=== PATIENT | female | born 1935 | race Caucasian/White ===

== ENCOUNTER → 2016-06-29 | Outpatient (CLI) | payer MEDICARE, MEDICAID ==
[~2016-06-29] MED LIST: AMIT10TA6 PO; CEPH-583 PO; CHOL100092 PO; CITA20TA9 PO; GABA-336 PO; GUAI600T PO; HYDR-4078 PO; LISI10TA7 PO; LOPE2CAP PO; MAGN400O4 PO; METH1ADH6 TOP; MIRT15TA6 PO; MULT1TAB PO; PANT40TA32 PO; ROPI1TAB12 PO; SUCR1ORA12 PO; TROL85CR8 TOP; VITA1TAB15 PO; [UNRECOGNIZED DRUG - MIXTURE] TOP
[2016-06-29 08:27] LABS: ANION GAP 11 MEQ/L (5-15); BUN/CREATININE RATIO 21 RATIO (6-26); C-REACTIVE PROTEIN 25.2 MG/L (0-9); CALCIUM 8.4 MG/DL (8.4-10.2); CHLORIDE 105 MEQ/L (98-107); CO2 - CARBON DIOXIDE 26 MEQ/L (22-30); CREATININE 0.8 MG/DL (0.7-1.2); GLOMERULAR FILTRATION RATE 69; GLUCOSE 98 MG/DL (65-110); POTASSIUM 5.2 MEQ/L (3.6-5); SODIUM 142 MEQ/L (134-144)
== END ==
LOC: LABNH.A213 00:05
PROVIDERS: ATTEND Family Medicine
DX: Z79.3 Long term (current) use of hormonal contraceptives (principal); M71.0 Abscess of bursa
CPT/HCPCS: 36415; 80048; 86140; P9604

== ENCOUNTER 2017-08-11 07:31 | Inpatient (IN) ==
[2017-08-11] MEDS ORDERED: NS 1,000 ML IV ONE (07:35)
[2017-08-11] MEDS ORDERED: PIPERACILLIN/TAZOBACTAM 3.375 GM in NS 100 ML IV ONE (07:36)
--- NOTE | 2017-08-11 07:38 | Emergency Department Report ---
Weakness HPI - General Stated complaint: malaise Time Seen by Provider: 08/11/17 07:34 Source: patient, EMS, RN notes reviewed, old records reviewed Mode of arrival: EMS Limitations: no limitations - History of Present Illness HPI Narrative: 81yo woman presented to the ER by EMS for 'malaise'. Pt has been treated by her PCM for a UTI for several weeks now. Two days ago, her atbx was changed to bactrim. Last night, pt developed fevers, chills, malaise, hypoxia and weakness. Pt was evaluated and referred to the ER, but pt refused transport. This AM, pt had an episode of weakness/dizziness; she decided she wanted to be evaluated. Pt states that she has an allergy to 'septra'. Says that the last time she had this "I almost !" but cannot give further details of her allergy/reaction. Other than her stated symptoms, along with UTI sx (urgency, dysuria, frequency) she has no other sx. MD Complaint: generalized weakness Onset (ago): hour(s) Duration: constant Location: generalized Migration: none Severity: moderate Exacerbating factors: none Context: new medication, recent illness Associated symptoms: confusion, diaphoresis, dysuria, headaches, loss of appetite, nausea/vomiting, shortness of breath - Related Data Home Medications Medication Instructions Recorded Confirmed Trolamine Salicylate 10% Cream 1 applicatio TOP TID PRN #0 04/18/14 08/11/17 [Aspercreme] Ascorbic Acid [Vitamin C] 1,000 mg PO PM 08/11/17 08/11/17 Aspirin *EC* [Ecotrin] 325 mg PO DAILY 08/11/17 08/11/17 Cholecalciferol [Vit. D-3] 1,000 unit PO PM 08/11/17 08/11/17 Citalopram [Celexa] 40 mg PO DAILY 08/11/17 08/11/17 Cyanocobalamin (Vitamin B-12) 1,000 mcg PO DAILY 08/11/17 08/11/17 [Vitamin B-12] Diclofenac Top Gel [Voltaren] 1 applicatio TP BID 08/11/17 08/11/17 Diclofenac Top Gel [Voltaren] 1 applicatio TP BID PRN 08/11/17 08/11/17 Ferrous Sulfate 325 mg PO DAILY 08/11/17 08/11/17 Folic Acid 0.8 mg PO PM 08/11/17 08/11/17 Gabapentin [Neurontin] 100 mg PO QAM 08/11/17 08/11/17 Gabapentin [Neurontin] 200 mg PO HS 08/11/17 08/11/17 Guaifenesin/Dm Oral Liq 10 ml PO Q6H PRN 08/11/17 08/11/17 [Robitussin Dm] Lactobacillus Acidophilus 1 tab PO PM 08/11/17 08/11/17 [Acidophilus] Lactose-Reduced Food [Ensure 237 ml PO TID PRN 08/11/17 08/11/17 Liquid] Levothyroxine Sodium 50 mcg PO DAILY 08/11/17 08/11/17 Lisinopril [Prinivil] 5 mg PO DAILY 08/11/17 08/11/17 Mag Hydrox/Aluminum Hyd/Simeth 30 ml PO Q4H PRN 08/11/17 08/11/17 [Alum-Mag Hydroxide-Simeth Liq] Mag Hydrox/Aluminum Hyd/Simeth 30 ml PO Q4H PRN 08/11/17 08/11/17 [Maalox Advanced Suspension] Meloxicam [Meloxicam] 7.5 mg PO BID 08/11/17 08/11/17 Mirtazapine [Remeron] 30 mg PO HS 08/11/17 08/11/17 Morphine Sulfate *SR* [Ms Contin] 15 mg PO Q12H 08/11/17 08/11/17 Multivitamin [One Daily 1 tab PO DAILY 08/11/17 08/11/17 Multivitamin] Oxycodone/Apap 10/325 [Percocet 1 - 2 tab PO Q4H PRN 08/11/17 08/11/17 10/325] Pantoprazole Sodium [Protonix] 40 mg PO DAILY 08/11/17 08/11/17 Peg 3350 238 G Bottle [Miralax] 17 gm PO DAILY PRN 08/11/17 08/11/17 Petrolatum,White/Lanolin [Vitamin 1 applicatio TP HS 08/11/17 08/11/17 A & D Ointment] Ropinirole [Requip] 1 mg PO HS 08/11/17 08/11/17 Sulfamethox/Tmp [Bactrim Ds] 1 tab PO BID 08/11/17 08/11/17 Vitamin B Complex [Balanced B-50] 1 tab PO DAILY 08/11/17 08/11/17 cephALEXin [Cephalexin] 500 mg PO Q6H 08/11/17 08/11/17 guaiFENesin [Mucinex] 600 mg PO Q12H PRN 08/11/17 08/11/17 Allergies Allergy/AdvReac Type Severity Reaction Status Date / Time sulfamethoxazole Allergy Severe Difficulty Verified 08/11/17 07:45 Breathing trimethoprim Allergy Severe Difficulty Verified 08/11/17 07:45 Breathing Review of Systems All systems: reviewed and negative except as stated Constitutional: Reports: as per HPI, fever, weakness. Denies: chills, weight change, night sweats Cardiovascular: Reports: as per HPI. Denies: chest pain, palpitations, dyspnea on exertion, orthopnea, edema, syncope, paroxysmal nocturnal dyspnea Respiratory: Reports: as per HPI, dyspnea. Denies: cough, wheezes, hemoptysis, stridor Genitourinary: Reports: as per HPI, urgency, dysuria, frequency. Denies: hematuria Integumentary: Reports: as per HPI. Denies: erythema, lesions, rash, swelling, wounds Neurological: Reports: as per HPI, weakness, confusion. Denies: headache, numbness, paresthesias, abnormal gait, vertigo Hematological/Lymphatic: Reports: as per HPI. Denies: easy bleeding, easy bruising, lymphadenopathy Allergic/Immunologic: Reports: as per HPI. Denies: facial swelling, urticaria, itchy eyes [facility] Medical History Updates: Frequent UTIs. Chronic cough. Depression. Osteoarthritis. Diarrhea. Constipation. GERD. Insomnia. Esophagitis. HTN. HL Physical Exam - Limitations Limitations: no limitations - General General appearance: alert, in no apparent distress, obese (Morbid) - Head Head exam: atraumatic, normocephalic, normal inspection - Eye Eye exam: Present: normal appearance, PERRL, EOMI. Absent: scleral icterus - ENT ENT exam: Present: normal exam, normal oropharynx, mucous membranes moist, normal external ear exam - Neck Neck exam: Present: normal inspection, full ROM, trachea midline. Absent: tenderness, lymphadenopathy - Chest Chest inspection: Present: normal inspection, symmetric chest wall rise. Absent : tenderness, rash - Respiratory Respiratory exam: Present: wheezes. Absent: normal lung sounds bilaterally, respiratory distress, stridor, prolonged expiratory phase, crackles - Cardiovascular Cardiovascular exam: Present: regular rate, normal rhythm, normal heart sounds. Absent: rubs, gallop, clicks - Abdominal Exam Abdominal exam: Present: soft, normal bowel sounds. Absent: distention, tenderness, guarding, rebound, rigidity - Extremities Exam Extremities exam: Present: normal inspection, full ROM, normal capillary refill. Absent: tenderness, joint swelling - Skin Skin exam: Present: warm, dry, intact. Absent: rash - Neurological Exam Neurological exam: Present: alert, oriented X3, CN II-XII intact, reflexes normal. Absent: normal gait - Psychiatric Psychiatric exam: Present: agitated, flat affect Course - Consultations Consultation #1: Dr. Krishnan: Time: 10:12 Consultation #2: Hospitalist: Will admit for overnight obs for ARF, hypoxia, and weakness in setting of UTI. Time: 10:38 Weakness - MDM Narrative Medical decision making narrative: Pt has a UCx from 13 NEL[facility] that is resistant to everything except bactrim and pip/ tazo. It is likely that this is why pt was given bactrim (in addition to pts vague description of her 'reaction'). After review of pts labs/rads, etc, will place for overnight obs for ARF, hypoxia, and weakness in setting of [id number] UTI. - Differential Diagnosis Differential diagnosis: Likely: acute myocardial infarction, anemia, hypoglycemia, hypothyroidism, sepsis, dehydration - Medical Records Attestation: I reviewed the patient's medical records. - Lab Data Attestation: I reviewed the patient's lab results. Result diagrams: 08/11/17 08:01 08/11/17 08:01 - Radiology Data Attestation: I reviewed the patient's radiology results. - EKG Data EKG #1 EKG attestation: Yes: I reviewed and interpreted this EKG. EKG shows normal: sinus rhythm, axis, intervals, ST-T waves [place]/QRS: IVCD Disposition Clinical Impression: Hypoxia, Weakness ARF (acute renal failure) Qualifiers: Acute renal failure type: unspecified Qualified Code(s): N17.9 - Acute kidney failure, unspecified UTI (urinary tract infection) Qualifiers: Urinary tract infection type: acute cystitis Hematuria presence: without hematuria Qualified Code(s): N30.00 - Acute cystitis without hematuria Disposition: 02 To OBS [facility] [place] Print Language: Ch[place] Condition: Improved Prescriptions: No Action Trolamine Salicylate 10% Cream [Aspercreme] 1 applicatio TOP TID PRN #0 PRN Reason: muscle pain Aspirin *EC* [Ecotrin] 325 mg PO DAILY Folic Acid 0.8 mg PO PM Oxycodone/Apap 10/325 [Percocet 10/325] 1 - 2 tab PO Q4H PRN PRN Reason: Pain Peg 3350 238 G Bottle [Miralax] 17 gm PO DAILY PRN PRN Reason: Constipation Lactose-Reduced Food [Ensure Liquid] 237 ml PO TID PRN PRN Reason: Prn Orders guaiFENesin [Mucinex] 600 mg PO Q12H PRN PRN Reason: Sinus Symptoms Diclofenac Top Gel [Voltaren] 1 applicatio TP BID PRN PRN Reason: Pain Mag Hydrox/Aluminum Hyd/Simeth [Maalox Advanced Suspension] 30 ml PO Q4H PRN PRN Reason: Prn Orders Guaifenesin/Dm Oral Liq [Robitussin Dm] 10 ml PO Q6H PRN PRN Reason: Cough Sulfamethox/Tmp [Bactrim Ds] 1 tab PO BID Levothyroxine Sodium 50 mcg PO DAILY Vitamin B Complex [Balanced B-50] 1 tab PO DAILY Meloxicam [Meloxicam] 7.5 mg PO BID Citalopram [Celexa] 40 mg PO DAILY Cyanocobalamin (Vitamin B-12) [Vitamin B-12] 1,000 mcg PO DAILY Ascorbic Acid [Vitamin C] 1,000 mg PO PM Gabapentin [Neurontin] 100 mg PO QAM cephALEXin [Cephalexin] 500 mg PO Q6H Petrolatum,White/Lanolin [Vitamin A & D Ointment] 1 applicatio TP HS Pantoprazole Sodium [Protonix] 40 mg PO DAILY Ropinirole [Requip] 1 mg PO HS Multivitamin [One Daily Multivitamin] 1 tab PO DAILY Morphine Sulfate *SR* [Ms Contin] 15 mg PO Q12H Lactobacillus Acidophilus [Acidophilus] 1 tab PO PM Lisinopril [Prinivil] 5 mg PO DAILY Mirtazapine [Remeron] 30 mg PO HS Gabapentin [Neurontin] 200 mg PO HS Ferrous Sulfate 325 mg PO DAILY Cholecalciferol [Vit. D-3] 1,000 unit PO PM Mag Hydrox/Aluminum Hyd/Simeth [Alum-Mag Hydroxide-Simeth Liq] 30 ml PO Q4H PRN PRN Reason: Indigestion Diclofenac Top Gel [Voltaren] 1 applicatio TP BID Referrals: Raad Krishnan MD [Primary Care Provider] - Time of Disposition: 10:45 - Seen By: physician
--- OUTSIDE RECORDS SUMMARY | 2017-08-11 07:38 | External Medical Summary | Clinical Summary ---
:1935 Author Organization [facility] Address [address] [place] [address] Care Team Providers Name Role Phone Roverto Nuñez PA-C Unavailable Jose Moss MD Primary Care Provider Bernardino Molina MD Unavailable Source Comments Some departments are not documenting in the electronic medical record. If you do not see the information that you expected, contact Release of Information in the Health Information Management department at [phone] for further assistance in locating additional records.[facility] Allergies No Known Allergies Current Medications Prescription Sig. Disp. Refills Start Date End Date Status carisoprodol(+) (SOMA) Take 350 mg by Active 350 mg PO tablet mouth at bedtime daily. MULTI-VITAMIN PO Take by mouth. Active glucosamine(+) 500 mg PO Take 1,500 mg by Active Tab mouth once. chromium picolinate(+) Take 200 mcg by Active 200 mcg PO Cap mouth four times daily. Alpha Lipoic Acid 600 mg Take 600 mg by Active PO Cap mouth twice daily. melatonin(+) 3 mg PO Tab Take 6 mg by mouth Active at bedtime daily. CALCIUM/MAG/VITAMIN Take 500 mg by Active D2/ZN/MIN (QUETA-MAG ZINC mouth twice daily. II PO) oxycodone SR (OXYCONTIN) Take 1 Tab by 30 Tab 0 06/03/2010 Active 10 mg PO tablet mouth every 12 hours. oxycodone/acetaminophen Take 1-2 Tabs by 120 Tab 0 06/03/2010 Active (PERCOCET) 5/325 mg PO mouth every 4 tablet hours as needed for Pain. docusate (COLACE) 100 mg Take 1 Cap by 80 Cap 2 06/03/2010 Active PO capsule mouth twice daily. Social History Tobacco Use Types Packs/Day Years Used Date Never Assessed Sex Assigned at Date Recorded Not on file Last Filed Vital Signs Vital Sign Reading Time Taken Blood Pressure 133/62 06/03/2010 8:21 AM CDT Pulse 62 06/03/2010 8:21 AM CDT Temperature 36.9 C (98.4 F) 06/03/2010 8:21 AM CDT Respiratory Rate - - Oxygen Saturation 96% 06/03/2010 8:21 AM CDT Inhaled Oxygen Concentration - - Weight 90.8 kg (200 lb 2.8 oz) 05/25/2010 2:37 PM CDT Height 162.6 cm (5' 4") 05/25/2010 2:37 PM CDT Body Mass Index 34.36 05/25/2010 2:37 PM CDT Plan of Treatment Health Maintenance Due Date Last Done Comments PHYSICAL (COMPREHENSIVE) EXAM 1940 PERTUSSIS VACCINE 1944 TETANUS VACCINE 1950 SHINGLES VACCINE 1993 OSTEOPOROSIS SCREENING 1998 PNEUMONIA (PCV13/PPSV23) VACCINES (1 of 2 - PCV13) 1998 INFLUENZA VACCINE 11/20/2017
--- NOTE | 2017-08-11 08:18 | XRay Report ---
Indication: Malaise PROCEDURE: XR chest 1V: Encounter: Initial Comparison: April 17, 2015 FINDINGS: Chronic scarring in the left lower lobe. The lungs are otherwise clear. There is no abnormal airspace opacity, pleural effusion or pneumothorax identified. The heart size, pulmonary vasculature and mediastinum are within normal limits. No significant skeletal abnormality is seen. Spinal stimulator leads noted in the lower thoracic region. IMPRESSION: No acute cardiopulmonary abnormality. .
[2017-08-11] MEDS: SALINE FLUSH 10ml SYRINGE IVF PRN (09:56)
[2017-08-11 11:44] VITALS: BMI 44.6
--- NOTE | 2017-08-11 13:41 | History & Physical Report ---
History of Present Illness Date: 08/11/17 Chief complaint: Malaise HPI: Patient is an [address] Krishnan for primary care. She was brought into the ED this am due to increasing confusion and weakness thought to be r/t starting Bactrim 2 days ago for UTI. Patient had been started on a different antibiotic initially for her UTI, but her sxs were not improving and the urine culture only showed sensitivity to sulfa and pip/tazo. Pt reports in the past she had had an adverse reaction to Bactrim as well. She had some confusion and weakness last night and EMS evaluated her then but she declined transport to the ER. This am she couldn't hold on to the lift to transfer and her knees buckled and she couldn't talk, thus, she agreed to come to hospital. In ER, she was given a liter of NS and started on Pip/Tazo. Her labs revealed WBC of 7.3, hgb 11.9, potassium 5.4, Cr 2.1 and BUN 34. Lactate was normal. Urine cath specimen was essentially neg. CXR showed chronic scarring to the LLL , otherwise, no acute cardiopulmonary abnormality. EKG NSR with moderate intraventricular conduct delay. Review of Systems All systems PM: 10-point ROS was reviewed, no additional remarkable complaints except ("I hurt all over." (Chronic for patient - reports pain is from previous surgeries.) I still feel foggy. Is having some dysuria but reports her urgency and frequency has resolved. Last BM yesterday.) Past Medical History Medical History Updates: Frequent UTIs. Chronic cough. Depression. Osteoarthritis. Constipation. Insomnia. Esophagitis/GERD. HTN. HLD. Chronic musculoskeletal pain Surgical History: RTKA with revision following a fall, LTKA and femur repair following a different fall, lumbar back surgery, cholecystectomy, tonsillectomy , hysterectomy Family History: F - smoker, cardiomegaly M - uterine cancer Family History: As Above - Social History Smoking status: Never smoker Substance use type: does not use Alcohol intake frequency: does not drink Housing: senior care ([place]) Current occupational status: retired Social history: PCP - Dr. Krishnan Ortho - Dr Mejia ([place]) Medications Home Medications Medication Instructions Recorded Confirmed Type Trolamine Salicylate 10% Cream 1 applicatio TOP TID PRN #0 04/18/14 08/11/17 History [Aspercreme] Ascorbic Acid [Vitamin C] 1,000 mg PO PM 08/11/17 08/11/17 History Aspirin *EC* [Ecotrin] 325 mg PO DAILY 08/11/17 08/11/17 History Cholecalciferol [Vit. D-3] 1,000 unit PO PM 08/11/17 08/11/17 History Citalopram [Celexa] 40 mg PO DAILY 08/11/17 08/11/17 History Cyanocobalamin (Vitamin B-12) 1,000 mcg PO DAILY 08/11/17 08/11/17 History [Vitamin B-12] Diclofenac Top Gel [Voltaren] 1 applicatio TP BID 08/11/17 08/11/17 History Diclofenac Top Gel [Voltaren] 1 applicatio TP BID PRN 08/11/17 08/11/17 History Ferrous Sulfate 325 mg PO DAILY 08/11/17 08/11/17 History Folic Acid 0.8 mg PO PM 08/11/17 08/11/17 History Gabapentin [Neurontin] 100 mg PO QAM 08/11/17 08/11/17 History Gabapentin [Neurontin] 200 mg PO HS 08/11/17 08/11/17 History Guaifenesin/Dm Oral Liq 10 ml PO Q6H PRN 08/11/17 08/11/17 History [Robitussin Dm] Lactobacillus Acidophilus 1 tab PO PM 08/11/17 08/11/17 History [Acidophilus] Lactose-Reduced Food [Ensure 237 ml PO TID PRN 08/11/17 08/11/17 History Liquid] Levothyroxine Sodium 50 mcg PO DAILY 08/11/17 08/11/17 History Lisinopril [Prinivil] 5 mg PO DAILY 08/11/17 08/11/17 History Mag Hydrox/Aluminum Hyd/Simeth 30 ml PO Q4H PRN 08/11/17 08/11/17 History [Alum-Mag Hydroxide-Simeth Liq] Mag Hydrox/Aluminum Hyd/Simeth 30 ml PO Q4H PRN 08/11/17 08/11/17 History [Maalox Advanced Suspension] Meloxicam [Meloxicam] 7.5 mg PO BID 08/11/17 08/11/17 History Mirtazapine [Remeron] 30 mg PO HS 08/11/17 08/11/17 History Morphine Sulfate *SR* [Ms Contin] 15 mg PO Q12H 08/11/17 08/11/17 History Multivitamin [One Daily 1 tab PO DAILY 08/11/17 08/11/17 History Multivitamin] Oxycodone/Apap 10/325 [Percocet 1 - 2 tab PO Q4H PRN 08/11/17 08/11/17 History 10/325] Pantoprazole Sodium [Protonix] 40 mg PO DAILY 08/11/17 08/11/17 History Peg 3350 238 G Bottle [Miralax] 17 gm PO DAILY PRN 08/11/17 08/11/17 History Petrolatum,White/Lanolin [Vitamin 1 applicatio TP 08/11/17 08/11/17 History A & D Ointment] Ropinirole [Requip] 1 mg PO HS 08/11/17 08/11/17 History Sulfamethox/Tmp [Bactrim Ds] 1 tab PO BID 08/11/17 08/11/17 History Vitamin B Complex [Balanced B-50] 1 tab PO DAILY 08/11/17 08/11/17 History cephALEXin [Cephalexin] 500 mg PO Q6H 08/11/17 08/11/17 History guaiFENesin [Mucinex] 600 mg PO Q12H PRN 08/11/17 08/11/17 History Allergies Allergy/AdvReac Type Severity Reaction Status Date / Time sulfamethoxazole Allergy Severe Difficulty Verified 08/11/17 07:45 Breathing trimethoprim Allergy Severe Difficulty Verified 08/11/17 07:45 Breathing Exam Vital Signs: Temperature 98.4 F 08/11/17 11:33 Pulse Rate 63 08/11/17 11:33 Respiratory Rate 20 08/11/17 11:33 Blood Pressure 104/50 08/11/17 11:33 Pulse Oximetry 94 08/11/17 11:33 Height/Weight/BMI: Height 1.63 m Weight 117.9 kg Body Mass Index 44.6 - Constitutional Present: no acute distress, well nourished, well developed - Routine HEENT Exam Head: Present: normocephalic, atraumatic Eye: Present: EOMI, PERRL ENT: Present: mucous membranes moist, oropharynx clear - Routine Neck Exam Present: supple. Absent: lymphadenopathy, thyromegaly - Routine Respiratory Exam Present: CTA bilaterally. Absent: wheezes - Routine Cardiovascular Exam Present: RRR, no murmur - Routine Abdominal Exam Present: soft, normoactive bowel sounds. Absent: tenderness, distended - Routine Extremities Exam Present: edema (tr), normal capillary refill - Routine Skin Exam Present: dry, warm - Routine Neurological Exam Present: alert, oriented X3, CN II-XII intact struggles to finish her statements at times, is frustrated that she can't remember or come up with words. Still feels "a bit foggy." Totally appropriate with her answers and is alert and oriented. Able to recount events that led up to admission. - Routine Psychiatric Exam Present: normal affect, cooperative Results - Labs CBC & Chem 7: 08/11/17 08:01 08/11/17 08:01 Labs: Laboratory Tests 08/11/17 08:01 Troponin I < 0.012 Lipase 20 L Plasma Lactate 1.0 - Imaging and Cardiology Chest x-ray Additional comments: Date of Exam: 08/11/17 Indication: Malaise PROCEDURE: XR chest 1V: FINDINGS: Chronic scarring in the left lower lobe. The lungs are otherwise clear. There is no abnormal airspace opacity, pleural effusion or pneumothorax identified. The heart size, pulmonary vasculature and mediastinum are within normal limits. No significant skeletal abnormality is seen. Spinal stimulator leads noted in the lower thoracic region. IMPRESSION: No acute cardiopulmonary abnormality. Assessment and Plan Assessment and Plan: Assessment Altered mental status - likely r/t drug reaction vs UTI UTI - resistant to all drugs tested except sulfa and pip/tazo Adverse reaction to Bactrim Hypoxia - POA KRISTEN Anemia - POA Hyperkalemia - POA Frequent UTI's Chronic cough Depression Osteoarthritis GERD/esophagitis Insomnia HTN HLD Chronic pain Plan Admit, OBS DC Bactrim. 1st dose of pip/tazo given in ER. Continue q 6 hrs IV. NS 1 L bolused in ER. Continue at 125cc/hr for KRISTEN. Patient requiring 2L O2 NC to keep sats >90%. No O2 requirements at home. Incentive spirometer. UA, labs, CXR and EKG from ER reviewed. Urine culture, blood cultures pending. Continue home meds except Diclofenac gel, Mobic and Lisinopril due to KRISTEN. Repeat CBC and BMP in am to follow blood count and renal function/electrolytes. Heparin for DVT ppx. Care to return to Dr. Krishnan on DC Pt requests to be a full code. DVT Prophylaxis: SQ Heparin GI Prophylaxis: Protonix Resuscitation Status: Full Code - Physician Narrative Physician: other (Johnny Lopez MD) Narrative: I personally evaluated and assessed pt. Agree with the above assessment and plan. Pt was diagnosed with a UTI approx 10 days ago, and started on a medication which the organism ultimately was resistant to. About 2 days ago, due to ESBL E.Coli, which was sensitive to she was started on Bactrim DS BID, and received 5 doses total. She has a hx of Bactrim intolerance, and yesterday was told that the antibiotic was bactrim, and she seemed to subsequently feel worse with worse urinary symptoms. No rash, airway swelling. A/O x 3. NAD. LUngs clear. RRR. Obese. ESBL E.Coli UTI: Stop bactrim. Cover with zosyn, given that sensitive. Repeat UA negative. Completing 3-4 day course of appropriate abx should be adequate if generalized fatigue resolves. NS @125ml/hr given her KRISTEN. Since pt has been on bactrim, Cr appears artificially elevated in comparison to GFR due to Cr secretion. Given her decreased mobility, will consult PT/OT. Hospital Course Summary Disclaimer: The visit summary below is not to be considered part of the above Progress Note. Hospital Course: 08/11/17 Admit, OBS DC Bactrim. 1st dose of pip/tazo given in ER. Continue q 6 hrs IV. NS 1 L bolused in ER. Continue at 125cc/hr for KRISTEN. Patient requiring 2L O2 NC to keep sats >90%. No O2 requirements at home. Incentive spirometer. UA, labs, CXR and EKG from ER reviewed. Urine culture, blood cultures pending. Continue home meds except Diclofenac gel, Mobic and Lisinopril due to KRISTEN. Repeat CBC and BMP in am to follow blood count and renal function/electrolytes. Heparin for DVT ppx. Care to return to Dr. Krishnan on DC Pt requests to be a full code.
[2017-08-11] MEDS ORDERED: GUAIFENESIN/DM 5ml ORAL LIQUID PO PRN (14:21)
[2017-08-11] MEDS: PIPERACILLIN/TAZOBACTAM 2.25 GM in NS 100 ML IV SCH ×2 (17:22→21:31)
[2017-08-11] MEDS: NS 1,000 ML IV SCH (17:30)
[2017-08-11] MEDS: Oxycodone/Apap 10/325 1 TAB PO PRN (17:33)
[2017-08-11] MEDS: HEPARIN SUB-Q 5,000units/0.5ml INJECTION SQ SCH (18:57)
[2017-08-11] MEDS: LACTOBACILLUS (15B cfu) CAPSULE PO SCH (21:19)
[2017-08-11] MEDS: ROPINIROLE 1 MG TABLET PO SCH (21:20)
[2017-08-11] MEDS: GABAPENTIN 100 MG CAPSULE PO SCH (21:20)
[2017-08-11] MEDS: MIRTAZAPINE 30 MG TABLET PO SCH (21:20)
[2017-08-11] MEDS: [UNRECOGNIZED DRUG - OTHER] TOP SCH (21:22)
[2017-08-11] MEDS: VITAMINS A TOP SCH (21:22)
[2017-08-12] MEDS: PIPERACILLIN/TAZOBACTAM 2.25 GM in NS 100 ML IV SCH ×4 (02:04→20:07)
[2017-08-12] MEDS: HEPARIN SUB-Q 5,000units/0.5ml INJECTION SQ SCH ×3 (02:04→18:11)
[2017-08-12] MEDS: NS 1,000 ML IV SCH ×3 (02:05→20:03)
[2017-08-12] MEDS: LEVOTHYROXINE 50 MCG TABLET PO SCH (06:27)
[2017-08-12] MEDS: PANTOPRAZOLE 40 MG TABLET PO SCH (06:27)
[2017-08-12] MEDS: ASPIRIN *EC* 325 MG TABLET PO SCH (09:57)
[2017-08-12] MEDS: GABAPENTIN 100 MG CAPSULE PO SCH ×2 (09:57→20:03)
[2017-08-12] MEDS: CITALOPRAM 40 MG TABLET PO SCH (09:57)
[2017-08-12] MEDS: POLYETHYL GLYCOL 3350 17gm PACKET PO SCH (09:58)
[2017-08-12] MEDS: Oxycodone/Apap 10/325 1 TAB PO PRN ×2 (12:03→18:03)
--- NOTE | 2017-08-12 15:23 | Progress Note ---
- Date 08/12/17 Pt feeling well today. No N/V/F/C/CP/SOB. She requires the lift to get her up to use the bathroom. No other acute events. Objective Vital signs: Temperature 97.1 F 08/12/17 08:13 Pulse Rate 62 08/12/17 08:13 Respiratory Rate 18 08/12/17 08:13 Blood Pressure 144/61 H 08/12/17 08:13 Pulse Oximetry 86 L 08/12/17 09:00 - Constitutional Present: no acute distress, well developed - Routine HEENT Exam Head: Present: normocephalic, atraumatic Eye: Present: EOMI, PERRL ENT: Present: mucous membranes moist, oropharynx clear, external ear normal - Routine Respiratory Exam Present: CTA bilaterally. Absent: wheezes, crackles - Routine Cardiovascular Exam Present: RRR. Absent: murmur, gallop, rubs - Routine Abdominal Exam Present: soft, normoactive bowel sounds, non distended, non tender. Absent: organomegaly - Routine Extremities Exam Present: full ROM, normal capillary refill. Absent: cyanosis, edema - Routine Skin Exam Present: intact, dry. Absent: jaundice, rash - Routine Neurological Exam Present: alert, oriented X3, CN II-XII intact, moving all extremities (5/5 strength). Absent: altered mental status - Routine Psychiatric Exam Present: normal affect. Absent: depressed, anxious Results - Labs CBC & Chem 7: 08/12/17 04:12 08/12/17 13:40 Assessment and Plan Assessment and Plan: Altered mental status - likely r/t drug reaction vs UTI UTI - resistant to all drugs tested except sulfa and pip/tazo Adverse reaction to Bactrim Hypoxia - POA KRISTEN Anemia - POA Hyperkalemia - POA Frequent UTI's Chronic cough Depression Osteoarthritis GERD/esophagitis Insomnia HTN HLD Chronic pain Plan 81yo female with: Acute encephalopathy: Likely due to UTI. Continue treating as below. UTI: ESBL E.Coli from uring cx 08/01. Was treated for 2.5 days with bactrim ORganism sensitive to zosyn, continue while inpt. Hyperkalemia: Due to KRISTEN, lisinopril. Hold Lisinopril, tx KRISTEN as below. Recheck in am. KRISTEN, pre-renal: Cr 2.1----> 1.6 with IVF Hold lisinopril, monitor. FEN: Gen diet. Proph: Heparin Dispo: Likely dismiss to [facility] in 1-2 days. - Physician Narrative Narrative: Date: 08/12/17 Time: 1517 Hospital Course Summary Disclaimer: The visit summary below is not to be considered part of the above Progress Note. Hospital Course: 08/11/17 Admit, OBS DC Bactrim. 1st dose of pip/tazo given in ER. Continue q 6 hrs IV. NS 1 L bolused in ER. Continue at 125cc/hr for KRISTEN. Patient requiring 2L O2 NC to keep sats >90%. No O2 requirements at home. Incentive spirometer. UA, labs, CXR and EKG from ER reviewed. Urine culture, blood cultures pending. Continue home meds except Diclofenac gel, Mobic and Lisinopril due to KRISTEN. Repeat CBC and BMP in am to follow blood count and renal function/electrolytes. Heparin for DVT ppx. Care to return to Dr. Krishnan on DC Pt requests to be a full code.
[2017-08-12] MEDS: MIRTAZAPINE 30 MG TABLET PO SCH (20:05)
[2017-08-12] MEDS: LACTOBACILLUS (15B cfu) CAPSULE PO SCH (20:05)
[2017-08-12] MEDS: ROPINIROLE 1 MG TABLET PO SCH (20:08)
[2017-08-12] MEDS: VITAMINS A TOP SCH (20:08)
[2017-08-12] MEDS: [UNRECOGNIZED DRUG - OTHER] TOP SCH (20:08)
[2017-08-13] MEDS: NS 1,000 ML IV SCH ×4 (00:08→15:14)
[2017-08-13] MEDS: HEPARIN SUB-Q 5,000units/0.5ml INJECTION SQ SCH ×2 (00:19→09:57)
[2017-08-13] MEDS: Oxycodone/Apap 10/325 1 TAB PO PRN ×5 (01:58→22:45)
[2017-08-13] MEDS: PIPERACILLIN/TAZOBACTAM 2.25 GM in NS 100 ML IV SCH ×4 (02:00→21:00)
[2017-08-13] MEDS ORDERED: SODIUM POLYSTYRENE SULFONATE 15 GM/60 ML BOTTLE PO ONE (05:28)
[2017-08-13] MEDS ORDERED: CALCIUM GLUCONATE 1,000 MG in NS 100 ML IV ONE (05:28)
[2017-08-13] MEDS ORDERED: ALBUTEROL 2.5mg/3ml (0.083%) NEB AEROSOL PRN (05:29)
[2017-08-13] MEDS: PANTOPRAZOLE 40 MG TABLET PO SCH (05:48)
[2017-08-13] MEDS: LEVOTHYROXINE 50 MCG TABLET PO SCH (05:48)
[2017-08-13] MEDS: LORATADINE 10 MG TABLET PO SCH ×2 (05:52→09:43)
[2017-08-13] MEDS: GUAIFENESIN LA 600 MG TABLET PO PRN (06:00)
[2017-08-13] MEDS ORDERED: PNEUMOCOCCAL 13 VACCINE 0.5ml INJECTION IM ONE (09:00)
--- NOTE | 2017-08-13 09:26 | Progress Note ---
- Date 08/13/17 Morning specimen hemolyzed, with K 6.4. Overnight physician ordered kayexalate, Ca Gluconate. Repeat K 5.8 and also hemolyzed. No N/V/F/C/CP/SOB. No other complaints. Objective Vital signs: Temperature 96.3 F L 08/13/17 07:21 Pulse Rate 63 08/13/17 07:21 Respiratory Rate 18 08/13/17 07:43 Blood Pressure 147/63 H 08/13/17 07:21 Pulse Oximetry 93 08/13/17 07:21 Height/Weight/BMI: Weight 121.5 kg - Constitutional Present: no acute distress, well developed, obese - Routine HEENT Exam Head: Present: normocephalic, atraumatic Eye: Present: EOMI, PERRL ENT: Present: mucous membranes moist, oropharynx clear, external ear normal - Routine Respiratory Exam Present: CTA bilaterally. Absent: wheezes, crackles - Routine Cardiovascular Exam Present: RRR. Absent: murmur, gallop, rubs - Routine Abdominal Exam Present: soft, normoactive bowel sounds, non distended, non tender. Absent: organomegaly - Routine Extremities Exam Present: full ROM, normal capillary refill. Absent: cyanosis, edema - Routine Skin Exam Present: intact, dry. Absent: jaundice, rash - Routine Neurological Exam Present: alert, oriented X3, CN II-XII intact, moving all extremities (5/5 strength). Absent: altered mental status - Routine Psychiatric Exam Present: normal affect. Absent: depressed, anxious Results - Labs CBC & Chem 7: 08/12/17 04:12 08/13/17 06:51 Assessment and Plan Assessment and Plan: Altered mental status - likely r/t drug reaction vs UTI UTI - resistant to all drugs tested except sulfa and pip/tazo Adverse reaction to Bactrim Hypoxia - POA KRISTEN Anemia - POA Hyperkalemia - POA Frequent UTI's Chronic cough Depression Osteoarthritis GERD/esophagitis Insomnia HTN HLD Chronic pain Plan 81yo female with: Acute encephalopathy: Likely due to UTI. Appears to have resolved. Continue treating as below. UTI: ESBL E.Coli from [facility] cx 08/01. Was treated for 2.5 days with bactrim just prior to admit here. Organism sensitive to zosyn, continue while inpt, to complete 3-5 days total tx including the 2.5 days tx with bactrim. Hyperkalemia: Due to KRISTEN, lisinopril. Hemolyzed specimen this am, 6.4. Given Kayexalate, Ca Gluconate by overnight physician. Hold Lisinopril, tx KRISTEN as below. Recheck at 1400 and in am. KRISTEN, pre-renal and bactrim Cr secretion effect: Cr 2.1----> 1.6 ----> 1.0 with IVF Hold lisinopril, monitor. Depression Cont home celexa. Deconditioning Consult PT/OT. FEN: Gen diet. Proph: Lovenox Dispo: Plan dismissal to [place] Monday (08/14), off abx. - Physician Narrative Narrative: Date: 08/13/17 Time: 921 Hospital Course Summary Disclaimer: The visit summary below is not to be considered part of the above Progress Note. Hospital Course: 08/11/17 Admit, OBS DC Bactrim. 1st dose of pip/tazo given in ER. Continue q 6 hrs IV. NS 1 L bolused in ER. Continue at 125cc/hr for KRISTEN. Patient requiring 2L O2 NC to keep sats >90%. No O2 requirements at home. Incentive spirometer. UA, labs, CXR and EKG from ER reviewed. Urine culture, blood cultures pending. Continue home meds except Diclofenac gel, Mobic and Lisinopril due to KRISTEN. Repeat CBC and BMP in am to follow blood count and renal function/electrolytes. Heparin for DVT ppx. Care to return to Dr. Krishnan on DC Pt requests to be a full code.
[2017-08-13] MEDS: SODIUM BICARBONATE 100 MEQ in D5W 1,000 ML IV SCH ×2 (09:33→14:58)
[2017-08-13] MEDS: ASPIRIN *EC* 325 MG TABLET PO SCH (09:34)
[2017-08-13] MEDS: CITALOPRAM 40 MG TABLET PO SCH (09:34)
[2017-08-13] MEDS: GABAPENTIN 100 MG CAPSULE PO SCH ×2 (09:34→20:59)
[2017-08-13] MEDS: ENOXAPARIN 40 MG/0.4 ML INJECTION SQ SCH (09:43)
[2017-08-13] MEDS: POLYETHYL GLYCOL 3350 17gm PACKET PO SCH ×2 (10:00→15:13)
[2017-08-13] MEDS: ROPINIROLE 1 MG TABLET PO SCH (20:59)
[2017-08-13] MEDS: LACTOBACILLUS (15B cfu) CAPSULE PO SCH (20:59)
[2017-08-13] MEDS: MIRTAZAPINE 30 MG TABLET PO SCH (20:59)
[2017-08-13] MEDS: [UNRECOGNIZED DRUG - OTHER] TOP SCH (21:01)
[2017-08-13] MEDS: VITAMINS A TOP SCH (21:01)
[2017-08-13] MEDS ORDERED: FUROSEMIDE 20 MG/2 ML INJECTION IVP ONE (23:49)
[2017-08-13] MEDS: SALINE FLUSH 10ml SYRINGE IVF PRN (23:55)
[2017-08-14] MEDS: SODIUM BICARBONATE 100 MEQ in D5W 1,000 ML IV SCH (00:45)
[2017-08-14] MEDS: NS 1,000 ML IV SCH (00:45)
[2017-08-14] MEDS: PIPERACILLIN/TAZOBACTAM 2.25 GM in NS 100 ML IV SCH ×2 (02:27→08:46)
[2017-08-14 05:08] VITALS: O2SAT 95
[2017-08-14] MEDS: PANTOPRAZOLE 40 MG TABLET PO SCH (06:59)
[2017-08-14] MEDS: LEVOTHYROXINE 50 MCG TABLET PO SCH (06:59)
[2017-08-14] MEDS: Oxycodone/Apap 10/325 1 TAB PO PRN ×2 (06:59→11:35)
[2017-08-14] MEDS: LORATADINE 10 MG TABLET PO SCH (06:59)
[2017-08-14] MEDS: GABAPENTIN 100 MG CAPSULE PO SCH (08:45)
[2017-08-14] MEDS: ASPIRIN *EC* 325 MG TABLET PO SCH (08:46)
[2017-08-14] MEDS: ENOXAPARIN 40 MG/0.4 ML INJECTION SQ SCH (08:46)
[2017-08-14] MEDS: POLYETHYL GLYCOL 3350 17gm PACKET PO SCH (08:46)
[2017-08-14] MEDS: CITALOPRAM 40 MG TABLET PO SCH (08:46)
[2017-08-14] MEDS: GUAIFENESIN LA 600 MG TABLET PO PRN (09:28)
[2017-08-14 09:57] VITALS: RESP 18
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
[2017-08-14 11:11] VITALS: TEMP 97.8
--- NOTE | 2017-08-14 11:40 | Extended Care Facility Orders ---
<Kristen Espino L - Last Filed: 08/14/17 11:37> Admission Orders Admit to:: [facility] Allergies/Adverse Reactions: Allergies sulfamethoxazole Allergy (Severe, Verified 08/11/17 07:45) Difficulty Breathing trimethoprim Allergy (Severe, Verified 08/11/17 07:45) Difficulty Breathing Admitting Diagnosis: Elevated potassium, elevated creatine Admitting Physician: Fawn Logan MD Attending Physician: Fawn Logan MD Code Status: Full Code Anticiapted Length of Stay: greater than 30 days Rehab Potential: fair Rehab Prognosis: fair Diet: regular, low potassium Wound/Incision Care: n/a May use Facility Protocol or Standing Orders: Yes May have flu vaccine: Yes - Additional Information In Event of Arrest: Start CPR,call 911,send patient to the ER Resident is Aware of Diagnosis: Yes Laboratory/Radiology: Check BMP tomorrow and fax results to Dr. Krishnan. Dx: Hyperkalemia. Referrals: Raad Krishnan MD [Primary Care Provider] - 1 Week Additional Orders: Call Dr. Krishnan for systolic BP >180 or diastolic >90 given that her lisinopril is on hold. PRN O2. <Fawn Logan - Last Filed: 08/14/17 13:52> Admission Orders Admitting Diagnosis: Elevated potassium, elevated creatine Admitting Physician: Fawn Logan MD Attending Physician: Fawn Logan MD Code Status: Full Code Longterm Certification: I certify that SNF services are required to be given on an Inpatient basis because of the patients need for senior care care on a continuing basis for the condition(s) for which he/she received inpatient hospital services prior to his/her transfer to the SNF. SNF inpatient care is necessary for the following reasons - Additional Information Additional Orders: amlodipine initiated 08/14/17
[2017-08-14 12:48] VITALS: BP 170/74; PULSE 68
[2017-08-14] MEDS ORDERED: AMLODIPINE 2.5 MG TABLET PO SCH (14:00)
== END 2017-08-14 15:15 | DRG 689 ==
LOC: EDHOLD 07:31 → ED 07:31 → MED 11:25 → SUATTDRO 08-12 12:45
PROVIDERS: ADMIT Family Medicine; ATTEND Internal Medicine